=== PATIENT | female | born 1975 | race Caucasian/White ===

== ENCOUNTER → 2019-12-05 | Outpatient (CLI) | payer BC ==
--- NOTE | 2019-12-05 15:52 | Diagnostic Imaging Report ---
INDICATION: Right thigh pain. COMPARISON: None. FINDINGS: Four views of the right femur were obtained and show no fractures, dislocations, or other acute bony abnormalities. Joint spaces are well maintained throughout. The soft tissues appear unremarkable. No radiopaque foreign bodies are identified. IMPRESSION: Unremarkable radiographic exam of the right femur. Dictated by: Dictated on workstation # [id number]
== END ==
LOC: RAD FS 15:07
PROVIDERS: ATTEND Nurse Practitioner
DX: M79.651 Pain in right thigh (principal)
CPT/HCPCS: 73552

== ENCOUNTER 2021-01-02 08:55 | Emergency (ER) | payer BC ==
[~2021-01-02] VITALS: Ht 165 cm; Wt 91.3 kg
[2021-01-02] MEDS ORDERED: LACTATED RINGERS 1,000 ML IV STA (09:07)
[2021-01-02] MEDS ORDERED: KETOROLAC 30 MG/ML VIAL IVP STA (09:07)
[2021-01-02] MEDS ORDERED: METOCLOPRAMIDE INJ 10 MG/2 ML (REGLAN) IVP STA (09:07)
--- NOTE | 2021-01-02 09:07 | ED Abdominal Pain ---
General Chief Complaint: Abdominal/GI Problems Stated Complaint: LRQ PAIN; NAUSEA History of Present Illness Date Seen by Provider: Jan 02, 2021 Time Seen by Provider: 09:03 Initial Comments 45-year-old female presents with pain in her right lower quadrant. She reports that started this morning. She reports that couple days ago she had some nausea and vomiting. She is also has some occasional diarrhea. She denies any fevers or chills. The pain does not radiate. She denies any cough, chest pain or shortness of breath. She does not have any noticeable hematuria or dysuria. She denied flank pain. Allergies and Home Medications Allergies Coded Allergies: Sulfa (Sulfonamide Antibiotics) (Verified Allergy, Unknown, 01/02/21) morphine (Verified Allergy, Unknown, 01/02/21) Home Medications Ondansetron 4 Mg Tab.rapdis, 4 MG PO Q6H PRN for NAUSEA/VOMITING Prescribed by: PAOLO LOPEZ on 01/02/21 1048 Patient Home Medication List Home Medication List Reviewed: Yes Review of Systems Review of Systems Constitutional: No chills, No fever Respiratory: Denies Cough, Denies Shortness of Air Cardiovascular: Denies Chest Pain, Denies Lightheadedness Gastrointestinal: Abdominal Pain, Diarrhea, Nausea, Vomiting Genitourinary: No Symptoms Reported Musculoskeletal: no symptoms reported Skin: no symptoms reported Psychiatric/Neurological: No Symptoms Reported Endocrine: No Symptoms Reported Hematologic/Lymphatic: No Symptoms Reported Physical Exam Vital Signs Vital Signs - First Documented 01/02/21 09:09 Temp 36.5 Pulse 91 Resp 18 B/P (MAP) 151/92 (111) Pulse Ox 95 O2 Delivery Room Air Capillary Refill : Height/Weight/BMI Height: '" Weight: lbs. oz. kg; BMI Method: General Appearance: mild distress HEENT: pharynx normal Respiratory: lungs clear, normal breath sounds Cardiovascular: normal peripheral pulses, regular rate, rhythm Gastrointestinal: soft; No guarding, No rebound; tenderness (Right lower quadrant) Extremities: non-tender Back: no CVA tenderness Neurologic/Psychiatric: alert, normal mood/affect, oriented x 3 Skin: normal color, warm/dry Progress/Results/Core Measures Results/Orders Lab Results Laboratory Tests Test 01/02/21 09:05 01/02/21 09:12 Range/Units Urine Color YELLOW Urine Clarity CLEAR Urine pH 6.5 5-9 Urine Specific Berry <=1.005 1.016-1.022 Urine Protein NEGATIVE NEGATIVE Urine Glucose (UA) NEGATIVE NEGATIVE Urine Ketones NEGATIVE NEGATIVE Urine Nitrite NEGATIVE NEGATIVE Urine Bilirubin NEGATIVE NEGATIVE Urine Urobilinogen 0.2 < = 1.0 MG/DL Urine Leukocyte Esterase NEGATIVE NEGATIVE Urine RBC (Auto) NEGATIVE NEGATIVE Urine RBC NONE /HPF Urine WBC NONE /HPF Urine Squamous Epithelial Cells 5-10 /HPF Urine Crystals NONE /LPF Urine Bacteria TRACE /HPF Urine Casts NONE /LPF Urine Mucus NEGATIVE /LPF Urine Culture Indicated NO White Blood Count 6.3 4.3-11.0 10^3/uL Red Blood Count 4.45 4.35-5.85 10^6/uL Hemoglobin 13.1 11.5-16.0 G/DL Hematocrit 39 35-52 % Mean Corpuscular Volume 87 80-99 FL Mean Corpuscular Hemoglobin 29 25-34 PG Mean Corpuscular Hemoglobin Concent 34 32-36 G/DL Red Cell Distribution Width 13.2 10.0-14.5 % Platelet Count 314 130-400 10^3/uL Mean Platelet Volume 8.8 7.4-10.4 FL Immature Granulocyte % (Auto) 0 % Neutrophils (%) (Auto) 63 42-75 % Lymphocytes (%) (Auto) 26 12-44 % Monocytes (%) (Auto) 7 0-12 % Eosinophils (%) (Auto) 2 0-10 % Basophils (%) (Auto) 1 0-10 % Neutrophils # (Auto) 4.0 1.8-7.8 X 10^3 Lymphocytes # (Auto) 1.6 1.0-4.0 X 10^3 Monocytes # (Auto) 0.5 0.0-1.0 X 10^3 Eosinophils # (Auto) 0.2 0.0-0.3 10^3/uL Basophils # (Auto) 0.0 0.0-0.1 10^3/uL Immature Granulocyte # (Auto) 0.0 0.0-0.1 10^3/uL Sodium Level 139 135-145 MMOL/L Potassium Level 3.6 3.6-5.0 MMOL/L Chloride Level 103 98-107 MMOL/L Carbon Dioxide Level 26 21-32 MMOL/L Anion Gap 10 5-14 MMOL/L Blood Urea Nitrogen 9 7-18 MG/DL Creatinine 0.92 0.60-1.30 MG/DL Estimat Glomerular Filtration Rate > 60 BUN/Creatinine Ratio 10 Glucose Level 105 70-105 MG/DL Calcium Level 9.0 8.5-10.1 MG/DL Corrected Calcium 8.7 8.5-10.1 MG/DL Total Bilirubin 0.4 0.1-1.0 MG/DL Aspartate Amino Transf (AST/SGOT) 23 5-34 U/L Alanine Aminotransferase (ALT/SGPT) 37 0-55 U/L Alkaline Phosphatase 96 40-136 U/L C-Reactive Protein 0.58 H <0.50 MG/DL Total Protein 6.8 6.4-8.2 GM/DL Albumin 4.4 3.2-4.5 GM/DL My Orders Orders - LOPEZ,PAOLO L DO Cbc With Automated Diff (01/02/21 09:07) Comprehensive Metabolic Panel (01/02/21 09:07) Ua Culture If Indicated (01/02/21 09:07) Crp Fs (01/02/21 09:07) Abdomen (Kub) 1 View (01/02/21 09:07) Metoclopramide Injection (Reglan Injecti (01/02/21 09:07) Lactated Ringers (Lr 1000 Ml Iv Solution (01/02/21 09:07) Ketorolac Injection (Toradol Injection) (01/02/21 09:07) Ct Abdomen/Pelvis Wo (01/02/21 09:40) Vital Signs/I&O 01/02/21 09:09 Temp 36.5 Pulse 91 Resp 18 B/P (MAP) 151/92 (111) Pulse Ox 95 O2 Delivery Room Air Progress Progress Note : Progress Note Patient's pain improved with treatment. CT shows no acute process. Patient with no white count or other significant findings on lab. Patient with likely viral gastroenteritis. Will prescribe her some Zofran for her nausea. Patient stable and discharged Diagnostic Imaging Diagonstic Imaging: Xray Plain Films/CT/US/NM/MRI: abdomen Comments ABDOMEN (KUB) 1 VIEW Indication: Right lower quadrant pain KUB 9:18 AM The gallbladder appears to be surgically absent. Bowel gas pattern is normal. There are no pathologic masses or calcifications. IMPRESSION: No acute abnormalities in the abdomen Diagonstic Imaging: CT Plain Films/CT/US/NM/MRI: abdomen Comments T ABDOMEN/PELVIS WO PROCEDURE: CT abdomen and pelvis without contrast. TECHNIQUE: Multiple contiguous axial images were obtained through the abdomen and pelvis without the use of intravenous contrast. Auto Exposure Controls were utilized during the CT exam to meet ALARA standards for radiation dose reduction. INDICATION: Right lower quadrant pain. FINDINGS: The heart size is normal. The lung bases are clear. The liver is normal in size without focal lesions. Gallbladder surgically absent. No biliary duct dilatation. Spleen is normal. Pancreas and adrenal glands are unremarkable. Kidneys normal. Aorta is nonaneurysmal. Bowel gas pattern is nonspecific. No free air. No ascites. No focal inflammatory changes. Bladder is normal. There is no pelvic mass or adenopathy or free fluid. The osseous structures are unremarkable. IMPRESSION: Unremarkable noncontrast CT abdomen and pelvis. Departure Impression Primary Impression: Gastroenteritis Disposition: 01 HOME, SELF-CARE Condition: Stable Departure-Patient Inst. Referrals: KARINE RODRIGUEZ MD (PCP/Family) Primary Care Physician Patient Instructions: [id number] Add. Discharge Instructions: Drink plenty of fluids Tylenol or ibuprofen as needed for pain Follow-up with your primary care provider if symptoms or not improving in the next 4 to 5-day All discharge instructions reviewed with patient and/or family. Voiced understanding. Scripts Ondansetron (Ondansetron Odt) 4 Mg Tab.rapdis 4 MG PO Q6H PRN for NAUSEA/VOMITING, #20 TAB 0 Refills Prov: PAOLO LOPEZ DO 01/02/21 PAOLO LOPEZ DO Jan 02, 2021 09:07
[2021-01-02 09:18] LABS: BASOPHILS % (AUTO) 1 % (0-10); EOSINOPHILS # (AUTO) 0.2 10^3/uL (0.0-0.3); EOSINOPHILS % (AUTO) 2 % (0-10); HEMATOCRIT 39 % (35-52); HEMOGLOBIN 13.1 G/DL (11.5-16.0); LYMPHOCYTES # (AUTO) 1.6 X 10^3 (1.0-4.0); LYMPHOCYTES % (AUTO) 26 % (12-44); MEAN CORPUSCULAR HEMOGLOBIN 29 PG (25-34); MEAN CORPUSCULAR HGB CONC 34 G/DL (32-36); MEAN CORPUSCULAR VOLUME 87 FL (80-99); MEAN PLATELET VOLUME 8.8 FL (7.4-10.4); MONOCYTES # (AUTO) 0.5 X 10^3 (0.0-1.0); MONOCYTES % (AUTO) 7 % (0-12); NEUTROPHILS % (AUTO) 63 % (42-75); PLATELET COUNT 314 10^3/uL (130-400); WHITE BLOOD COUNT 6.3 10^3/uL (4.3-11.0)
--- NOTE | 2021-01-02 09:23 | Diagnostic Imaging Report ---
Indication: Right lower quadrant pain KUB 9:18 AM The gallbladder appears to be surgically absent. Bowel gas pattern is normal. There are no pathologic masses or calcifications. IMPRESSION: No acute abnormalities in the abdomen Dictated by: Dictated on workstation # [id number]
[2021-01-02 09:37] LABS: SODIUM 139 MMOL/L (135-145)
[2021-01-02 09:38] LABS: ALANINE AMINOTRANSFERASE 37 U/L (0-55); ALBUMIN 4.4 GM/DL (3.2-4.5); ALKALINE PHOSPHATASE 96 U/L (40-136); BILIRUBIN,TOTAL 0.4 MG/DL (0.1-1.0); BUN/CREATININE RATIO 10; CARBON DIOXIDE 26 MMOL/L (21-32); CHLORIDE 103 MMOL/L (98-107); CREATININE SERUM 0.92 MG/DL (0.60-1.30); GFR ESTIMATED > 60; GLUCOSE 105 MG/DL (70-105); POTASSIUM 3.6 MMOL/L (3.6-5.0); TOTAL PROTEIN 6.8 GM/DL (6.4-8.2)
[2021-01-02 10:11] LABS: BACTERIA,URINE TRACE /HPF; BILIRUBIN,URINE NEGATIVE (NEGATIVE); CLARITY,URINE CLEAR; COLOR,URINE YELLOW; GLUCOSE, URINE (UA) NEGATIVE (NEGATIVE); KETONES,URINE NEGATIVE (NEGATIVE); LEUKOCYTE ESTERASE ,URINE NEGATIVE (NEGATIVE); NITRITE,URINE NEGATIVE (NEGATIVE); PH,URINE 6.5 (5-9); PROTEIN,URINE NEGATIVE (NEGATIVE)
--- NOTE | 2021-01-02 10:35 | Diagnostic Imaging Report ---
PROCEDURE: CT abdomen and pelvis without contrast. TECHNIQUE: Multiple contiguous axial images were obtained through the abdomen and pelvis without the use of intravenous contrast. Auto Exposure Controls were utilized during the CT exam to meet ALARA standards for radiation dose reduction. INDICATION: Right lower quadrant pain. FINDINGS: The heart size is normal. The lung bases are clear. The liver is normal in size without focal lesions. Gallbladder surgically absent. No biliary duct dilatation. Spleen is normal. Pancreas and adrenal glands are unremarkable. Kidneys normal. Aorta is nonaneurysmal. Bowel gas pattern is nonspecific. No free air. No ascites. No focal inflammatory changes. Bladder is normal. There is no pelvic mass or adenopathy or free fluid. The osseous structures are unremarkable. IMPRESSION: Unremarkable noncontrast CT abdomen and pelvis. Dictated by: Dictated on workstation # [id number]
[2021-01-02] MEDS ORDERED: ONDA4TAB11 PO (10:48)
[2021-01-02 10:56] VITALS: BP 118/93
== END 2021-01-02 10:56 | disposition home or self-care (01) ==
LOC: EDUNIT# 08:55 → ER FS 08:57
DX: K52.9 Noninfective gastroenteritis and colitis, unspecified (principal)
CPT/HCPCS: 36415; 74018; 74176; 80053; 81000; 85025; 86141